=== PATIENT | female | born 1995 | race Caucasian/White ===

== ENCOUNTER 2020-10-18 09:53 | Emergency (ER) | payer SELFPAY ==
[2020-10-18 09:54] VITALS: BP 105/69; PULSE 64; RESP 16; TEMP 36.7; O2SAT 99; BMI 34.6
--- NOTE | 2020-10-18 10:02 | ED.VIS.GEN ---
History of Present Illness Chief Complaint: Abd Pain Informant: Patient Narrative: 25-year-old female with past medical history of PCOS presents with concern for lower abdominal cramping. Patient is at approximately 6 weeks. States it is midline and low in her pelvis. States that she has having frequent urination but denies any dysuria. Denies any vaginal bleeding. Denies any lightheadedness or dizziness. Denies any fever or chills. One episode nausea with vomiting this morning. Nonbilious and nonbloody. Past Medical History - Allergies and Home Meds Allergies/Adverse Reactions: Allergies No Known Allergies Allergy (Verified 10/18/20 10:07) Primary Care Physician: NOT,DEFINED [NON-STAFF] - Prior records reviewed: Yes Past Medical History: - - PCOS Surgical History: no surgical history Lives: With Family Smoking Status: Never smoker Alcohol: None Drugs: None Review of Systems General: Denies: Chills, Fever, Sweats Eyes: Denies: Visual changes - bilaterally, Diplopia ENT: Denies: Rhinorrhea, Sore throat Cardiovascular: Denies: Chest pain, Palpitations Respiratory: Denies: Dyspnea, Cough, Dyspnea on exertion Gastrointestinal: Reports: Abdominal pain, Nausea, Vomiting. Denies: Diarrhea, Melena, Hematochezia Genitourinary: Denies: Dysuria, Hematuria, Frequency Musculoskeletal: Denies: Back pain, Extremity Pain Skin: Denies: Rash, Wounds Neurological: Denies: Headache, Weakness, Numbness Physical Exam Vital Signs/Narrative: Vital Signs Temp Pulse Resp BP Pulse Ox 10/18/20 09:54 98.1 F 64 16 105/69 99 Inital Vital Signs reviewed: Yes General: Well nourished, Well developed, No Acute Distress Head: Normocephalic, Atraumatic Eyes: Perrl, EOMI ENT: Moist mucous membranes, No rhinorrhea Neck: Supple, Nontender Cardiovascular: Regular rate, Regular rhythm, No murmurs Respiratory: No distress, CTA bilaterally, Chest nontender Abdomen: Soft, Nondistended, Normal bowel sounds, - - Suprapubic tenderness. Back: Nontender, Normal Inspection Extremities: Nontender, No edema Skin: Normal color, No rash Neurological: Alert, Oriented x3, Cranial nerves II-XII grossly intact, Normal Strength, Normal Sensation Psychological: Normal affect, Normal Mood Diagnostic/Tx/Re-eval Clinical Impression(s) from Imaging Studies Obstetrics Ultrasound 10/18/20 11:59 IMPRESSION: Single live intrauterine gestation with a mean gestational age of 6 weeks and 2 days. Electronically Signed: Franki Alfaro, at 13:18 EST , Service support , Laboratory Data 10/18/20 10/18/20 10:04 10:27 HCG, Quant [id number] H Urine Color Straw Urine Clarity Sl. Cloudy Urine pH 7.0 Ur Specific [place] 1.010 Urine Protein Negative Urine Glucose (UA) Normal Urine Ketones Negative Urine Occult Blood Negative Urine Nitrite Negative Urine Bilirubin Negative Urine Urobilinogen Normal Ur Leukocyte Esterase Negative Urine RBC 0 SEEN Urine WBC 0 SEEN Ur Squamous Epith Cells 0-5 SEEN Urine Bacteria 0 SEEN Urine Mucus 0 SEEN - Medical Decision Making Appears well nontoxic. Vital signs within normal limits. No vaginal bleeding. Urine clear. Quantitative hCG at appropriate level. Spoke with Dr. Perea MOTOR COACH CHAUFFEUR who suggested transvaginal ultrasound. Ultrasound confirms IUP without evidence of adnexal mass. Patient advised to follow-up at her scheduled appointment and return for any further concern. Patient agreeable and discharged home in stable condition. Impression: 1. Abdominal pain 2. First trimester ED Disposition - Plan for ED Patient: Disposition: Home or Assisted Living Instructions: Care for a Healthy Baby Referrals: Tom Portillo MD [STAFF PHYSICIAN] - Keep Carie appointment
[2020-10-18 10:10] LABS: Bacteria 0 SEEN /hpf (None Seen); Mucous, Urine 0 SEEN /hpf (<or=2+); Red Blood Cells-Urine 0 SEEN /hpf (0-5); White Blood Cells 0 SEEN /hpf (0-5)
[2020-10-18 10:26] LABS: Color, Urine Straw (Yellow); Glucose, Dipstick Normal (Normal); Ketone-Dipstick Negative (Negative); Leukocyte Esterase-Dipstick Negative /ul (Negative); Nitrite-Dipstick Negative (Negative); Occult Blood-Urine Negative /ul (Negative); Protein-Dipstick Negative (Negative); Urine Bilirubin Dipstick Negative (Negative); Urine Clarity Sl. Cloudy (Clear); Urine Urobilinogen Normal (Normal)
[2020-10-18 10:36] LABS: Squamous Epithelial Cells - UA 0-5 SEEN /hpf (5-10)
[2020-10-18 11:20] LABS: hCG Titer Quant., Serum 16915 mIU/mL (1-3)
--- NOTE | 2020-10-18 11:59 | US_ITS ---
STUDY: FIRST TRIMESTER OBSTETRICAL ULTRASOUND REASON FOR EXAM: Female, 25 years old cramping without bleeding LMP: 09/05/2020. TECHNIQUE: Transvaginal TECHNICAL QUALITY: Adequate. PRIOR ULTRASOUND: None. FINDINGS: There is visualization of a single gestational sac in a normal intrauterine position. The mean sac diameter (MSD) measures 1.5 cm, indicating an estimated gestational age (EGA) of 6 weeks, 2 days. The gestational sac shape is within normal limits. There is a visualized yolk sac. The yolk sac measures 3 mm. The placenta is non-visualized. There is visualization of a live embryo. The crown-rump length (CRL) measures 4 mm, indicating an estimated gestational age (EGA) of 6 weeks, 2 days. There is demonstrated cardiac activity with a heart rate of 90 bpm. The estimated gestation age (EGA) by LMP is 6 weeks, 1 days. The estimated date of delivery (JUDIE) by LMP is 06/12/2021. The estimated gestation age (EGA) by US is 6 weeks, 2 days. The estimated date of delivery (JUDIE) by US is 06/11/2021. The uterus measures 10.1 cm x 6.2 cm x 6.2 cm. There is no demonstrated uterine fibroid. The cervix is closed. The right ovary measures 3.1 cm x 2.1 cm x 1.9 cm. There is no right ovarian cyst. There is no visualized right adnexal mass or complex lesion. The left ovary measures 4.7 cm x 2.6 cm x 2.7 cm. There is no left ovarian cyst. There is no visualized left adnexal mass or complex lesion. There is minimal fluid in the cul de sac. US/Transvaginal w/Preg US IMPRESSION: Single live intrauterine gestation with a mean gestational age of 6 weeks and 2 days. Electronically Signed: Franki Alfaro, at 13:18 EST , Service support ,
[2020-10-18 12:00] VITALS: RESP 16
== END 2020-10-18 13:36 | disposition home or self-care (01) ==
PROVIDERS: Emergency Provider Emergency Medicine
DX: O26.891 Other specified pregnancy related conditions, first trimester (principal); R10.9 Unspecified abdominal pain; O99.281 Endocrine, nutritional and metabolic diseases complicating pregnancy, first trimester; E28.2 Polycystic ovarian syndrome; Z3A.01 Less than 8 weeks gestation of pregnancy
CPT/HCPCS: 36415; 76817; 81001; 84702; 99282

== ENCOUNTER → 2020-11-16 09:55 | Outpatient (CLI) | payer OTHER, SELFPAY ==
[2020-10-18 09:54] VITALS: BMI 34.6
[2020-11-16 11:03] LABS: Absolute Lymphocyte Count 1.22 X10^3/uL (0.83-4.51); Absolute Neutrophil Count 7.5 X10^3/uL (2.0-7.7); Basophil# 0.04 X10^3/uL; Basophil% 0.4 % (0-1); Eosinophil# 0.08 X10^3/uL; Eosinophils% 0.9 % (0-5); Hematocrit 36.3 % (37-47); Hemoglobin 12.3 g/dL (12.0-15.0); Lymphocyte # 1.22 X10^3/ul (4.0); Mean Corp Hgb Conc 33.9 g/dL (32-36); Mean Corpuscular Hgb 30.8 pg (27.0-32.0); Mean Platelet Vol. 10.5 fl (6.2-12.0); Monocyte# 0.45 X10^3/uL; Monocyte% 4.8 % (0-10); NRBC Flagged by Analyzer 0 % (0-5); Neutrophil # 7.49 X10^3/uL (2.7-7.7); Platelet Count 271 K/mm3 (150-450); RBC Distribution Width CV 12.6 % (11.6-14.6); RBC Distribution Width SD 41.7 fl (35.1-43.9); Red Blood Count 3.99 M/mm3 (4.2-5.4); White Blood Count 9.4 K/mm3 (4.4-11.0)
[2020-11-16 11:53] LABS: HIV - WCH Non-Reactive (Nonreactive); Hepatitis B Surface Antigen Non-Reactive (Nonreactive); Hepatitis C Antibody Non-Reactive (Nonreactive); Rubella IgG Reactive (Nonreactive)
[2020-11-20 03:07] LABS: Chlamydia By Nucleic Acid AMP Negative (Negative)
[2020-11-20 08:41] LABS: Gonococcus By Nucleic Acid AMP Negative (Negative)
[2020-11-22 01:42] LABS: Prenatal RPR NONREACTIVE (NONREACTIVE)
== END ==
PROVIDERS: Visit Provider Obstetrics & Gynecology
DX: Z34.81 Encounter for supervision of other normal pregnancy, first trimester (principal)
CPT/HCPCS: 36415; 85025; 86703; 86762; 86803; 87086; 87088; 87340; 87491; 87591

== ENCOUNTER 2020-11-19 14:57 | Emergency (ER) | payer OTHER, SELFPAY ==
[2020-11-19 14:59] VITALS: BP 139/78; PULSE 98; RESP 18; TEMP 36.9; O2SAT 99; BMI 36.6
--- NOTE | 2020-11-19 15:09 | ED.DCSUM_ITS ---
History of Present Illness Chief Complaint: General Illness Informant: Patient Narrative: 25-year-old female G1, P0 at 11 weeks presents with fever. Patient states that she has had intermittent fever over the past 2 days. States that she is working at the [employer] today when she felt feverish they checked her temperature which was above 100 and sent her home. States that she has had muscle aches in her lower extremities. States she is felt very weak. States she began having pain in her right back last night. Describes it as aching. States that she does have urinary frequency without dysuria. Denies any vaginal bleeding or discharge. Denies any nausea, vomiting, abdominal pain. Denies any cough. Denies any sick contacts. Past Medical History - Allergies and Home Meds Allergies/Adverse Reactions: Allergies No Known Allergies Allergy (Verified 10/18/20 10:07) Primary Care Physician: Care Physician,No Primary [Primary Care Provider] - Prior records reviewed: Yes Past Medical History: None Surgical History: no surgical history Lives: Spouse/ Significant Other Smoking Status: Former smoker Alcohol: None Drugs: None Review of Systems General: Reports: Fever, Malaise. Denies: Chills, Sweats Eyes: Denies: Visual changes - bilaterally, Diplopia ENT: Denies: Rhinorrhea, Sore throat Cardiovascular: Denies: Chest pain, Palpitations Respiratory: Denies: Dyspnea, Cough, Dyspnea on exertion Gastrointestinal: Denies: Abdominal pain, Nausea, Vomiting, Diarrhea, Melena, Hematochezia Genitourinary: Denies: Dysuria, Hematuria, Frequency Musculoskeletal: Reports: Myalgias. Denies: Back pain, Extremity Pain Skin: Denies: Rash, Wounds Neurological: Denies: Headache, Weakness, Numbness Physical Exam Vital Signs/Narrative: Vital Signs Temp Pulse Resp BP Pulse Ox 11/19/20 14:59 98.5 F 98 18 139/78 H 99 Inital Vital Signs reviewed: Yes General: Well nourished, Well developed, No Acute Distress Head: Normocephalic, Atraumatic Eyes: Perrl, EOMI ENT: Moist mucous membranes, No rhinorrhea Neck: Supple, Nontender Cardiovascular: Regular rate, Regular rhythm, No murmurs Respiratory: No distress, CTA bilaterally, Chest nontender Abdomen: Soft, Nontender, Nondistended, Normal bowel sounds Back: Nontender, Normal Inspection Extremities: Nontender, No edema Skin: Normal color, No rash Neurological: Alert, Oriented x3, Cranial nerves II-XII grossly intact, Normal Strength, Normal Sensation Psychological: Normal affect, Normal Mood Diagnostic/Tx/Re-eval Laboratory Data 11/19/20 11/19/20 15:14 15:20 Urine Color Yellow Urine Clarity Sl. Cloudy Urine pH 6.0 Ur Specific [place] 1.025 Urine Protein Negative Urine Glucose (UA) Normal Urine Ketones 5 H Urine Occult Blood Negative Urine Nitrite Negative Urine Bilirubin Negative Urine Urobilinogen Normal Ur Leukocyte Esterase 500 H Urine RBC 0 SEEN Urine WBC 0-5 SEEN Ur Squamous Epith Cells 10-25 SEEN Urine Bacteria 1+ Urine Mucus 0 SEEN POC Glucose 99 - Medical Decision Making Appears well nontoxic. Afebrile. No tachycardia. Abdomen soft. No vaginal bleeding or discharge. Urine shows no significant evidence of infection. Will be sent for culture. Glucose normal. Covid negative. Spoke with patient's SOLAR SALES REPRESENTATIVE AND ASSESSOR Dr. Perea who is agreeable with following up in the office. Patient advised to return for new or worsening symptoms. Patient agreeable and discharged home in stable condition. Impression: 1. Intermittent fevers 2. First trimester ED Disposition - Plan for ED Patient: Disposition: Home or Assisted Living Instructions: Care for a Healthy Baby, Nutrition During Referrals: Anderson Perea MD [STAFF PHYSICIAN] - 5-7 Days
[2020-11-19 15:30] LABS: Mucous, Urine 0 SEEN /hpf (<or=2+)
[2020-11-19 15:31] LABS: Bedside Glucose 99 mg/dL (70-110)
[2020-11-19 15:34] LABS: Color, Urine Yellow (Yellow); Glucose, Dipstick Normal (Normal); Ketone-Dipstick 5 mg/dl (Negative); Leukocyte Esterase-Dipstick 500 /ul (Negative); Nitrite-Dipstick Negative (Negative); Occult Blood-Urine Negative /ul (Negative); Protein-Dipstick Negative (Negative); Specific Gravity, Urine 1.025 (1.002-1.030); Urine Bilirubin Dipstick Negative (Negative); Urine Clarity Sl. Cloudy (Clear); Urine Urobilinogen Normal (Normal)
[2020-11-19 15:44] LABS: Red Blood Cells-Urine 0 SEEN /hpf (0-5); Squamous Epithelial Cells - UA 10-25 SEEN /hpf (5-10)
[2020-11-19 15:45] LABS: Bacteria 1+ /hpf (None Seen); White Blood Cells 0-5 SEEN /hpf (0-5)
[2020-11-19 17:07] VITALS: BP 132/80; PULSE 64; PULSE 74; RESP 16; O2SAT 97; O2SAT 98
== END 2020-11-19 17:08 | disposition home or self-care (01) ==
PROVIDERS: Emergency Provider Emergency Medicine
DX: O26.891 Other specified pregnancy related conditions, first trimester (principal); R50.9 Fever, unspecified; M79.10 Myalgia, unspecified site; Z3A.11 11 weeks gestation of pregnancy; Z87.891 Personal history of nicotine dependence
CPT/HCPCS: 81001; 82962; 87426; 99282

== ENCOUNTER 2020-12-08 17:32 | Emergency (ER) | payer OTHER, SELFPAY ==
[2020-12-08 17:32] VITALS: BP 155/88; PULSE 98; RESP 16; TEMP 36.7; O2SAT 98; BMI 36.6
[2020-12-08 17:35] VITALS: BP 155/88; PULSE 98; RESP 16; TEMP 36.7; O2SAT 98
--- NOTE | 2020-12-08 17:53 | ED.DCSUM_ITS ---
- ER Visit Summary Date of Service: 12/08/20 Chief Complaint: Vaginal bleeding History of Present Illness: The patient is a 25 F who by dates is around 13 weeks . She single live IUP on October 18, 2020 by ultrasound. Blood type is O+ from prior labs. States last week she had some pelvic cramping and vaginal bleeding which is since stopped. She is having no further bleeding. Said today she had diarrhea and a fever of 101. Denies vomiting. Denies any dysuria. Currently denies any abdominal pain. This is her first G1, P0 Ab0. Physical Examination: Young female no acute distress vital signs stable afebrile. HEENT exam unremarkable. Moist with members. Neck nontender no lymphadenopathy. Lungs clear to auscultation bilaterally. Heart regular rhythm no murmur rate about 90. Chest were nontender. Abdomen soft nontender normal bowel sounds no peritoneal signs. Patient moving all 4 extremities. No edema. Back nontender. Neurologically she is awake alert with no focal motor deficits. Test Results: CBC shows count 8. Hemoglobin 11.7 which is along her baseline. BMP shows mild hypokalemia potassium 3.3. Normal creatinine and gap. UA negative. Quantitative hCG equals 19,568. Previously it was 16,915. ABO Rh from prior labs is O+. heart tones per nursing positive at 154 bpm. Emergency Department Course and Treatment: Vaginal bleeding and cramping possible miscarriage. Currently not bleeding. Repeat exam patient is doing well at 1935 PM. Will be discharged home with outpatient follow-up with her [employer]. She and I went over all of her test results. Treatment Plan: Patient follow-up for possible threatened miscarriage. Disposition: Discharge Impression: Vaginal bleeding at 13 weeks Threatened miscarriage This note was generated with soup.me dictation software. It may contain incorrect words, spelling, and punctuation that were not noted in review of the chart prior to signing ED Disposition - Plan for ED Patient: Disposition: Home or Assisted Living Instructions: ED Possible Miscarriage ... Referrals: Anderson Perea MD [STAFF PHYSICIAN] - 3-5 Days Additional Instructions: Tylenol for any pain. Follow-up with your [employer] doctor this week. Any time you have vaginal bleeding and you are there is a risk of a miscarriage but at this time there is no signs of a miscarriage.
[2020-12-08 18:12] LABS: Mucous, Urine 0 SEEN /hpf (<or=2+); Red Blood Cells-Urine 0 SEEN /hpf (0-5)
[2020-12-08] MEDS: 0.9% Normal Saline 1,000 ML 1000 ML IV (18:13)
[2020-12-08 18:22] LABS: Absolute Lymphocyte Count 1.46 X10^3/uL (0.83-4.51); Absolute Neutrophil Count 6.2 X10^3/uL (2.0-7.7); Basophil# 0.02 X10^3/uL; Basophil% 0.2 % (0-1); Eosinophil# 0.06 X10^3/uL; Eosinophils% 0.7 % (0-5); Hematocrit 34.3 % (37-47); Hemoglobin 11.7 g/dL (12.0-15.0); Lymphocyte # 1.46 X10^3/ul (4.0); Lymphocyte % 17.8 % (19-41); Mean Corp Hgb Conc 34.1 g/dL (32-36); Mean Corpuscular Hgb 30.9 pg (27.0-32.0); Mean Corpuscular Volume 90.5 fL (81-99); Mean Platelet Vol. 10.3 fl (6.2-12.0); Monocyte# 0.45 X10^3/uL; Monocyte% 5.5 % (0-10); NRBC Flagged by Analyzer 0 % (0-5); Neutrophil # 6.17 X10^3/uL (2.7-7.7); Neutrophil % 75.3 % (47-70); Platelet Count 252 K/mm3 (150-450); RBC Distribution Width CV 12.2 % (11.6-14.6); RBC Distribution Width SD 40.4 fl (35.1-43.9); Red Blood Count 3.79 M/mm3 (4.2-5.4); White Blood Count 8.2 K/mm3 (4.4-11.0)
[2020-12-08 18:38] LABS: Color, Urine Yellow (Yellow); Glucose, Dipstick Normal (Normal); Ketone-Dipstick 5 mg/dl (Negative); Leukocyte Esterase-Dipstick 25 /ul (Negative); Nitrite-Dipstick Negative (Negative); Occult Blood-Urine 10 /ul (Negative); Protein-Dipstick Negative (Negative); Specific Gravity, Urine 1.025 (1.002-1.030); Urine Bilirubin Dipstick Negative (Negative); Urine Clarity Sl. Cloudy (Clear); Urine Urobilinogen Normal (Normal)
[2020-12-08 18:43] LABS: Squamous Epithelial Cells - UA 10-25 SEEN /hpf (5-10)
[2020-12-08 18:44] LABS: Bacteria 3+ /hpf (None Seen); White Blood Cells 0-5 SEEN /hpf (0-5)
[2020-12-08 18:50] LABS: Anion Gap 4 (5-15); BUN 15 mg/dL (7-18); BUN/Creat Ratio 26.5 RATIO (10-20); Calcium,Total 8.4 mg/dL (8.5-10.1); Chloride 106 mmol/L (98-107); Creatinine, Serum 0.57 mg/dL (0.55-1.02); EST Glomerular Filtration Rate 140 mL/min (>60); Est Glom Filt Rate - Afr Amer 169 mL/min (>60); Glucose 104 mg/dL (74-106); Potassium 3.3 mmol/L (3.5-5.1); Sodium Level 137 mmol/L (136-145)
--- NOTE | 2020-12-08 19:38 | ED.DEP ---
ED Disposition - Plan for ED Patient: Disposition: Home or Assisted Living Instructions: ED Possible Miscarriage ... Referrals: Anderson Perea MD [STAFF PHYSICIAN] - 3-5 Days Additional Instructions: Tylenol for any pain. Follow-up with your DISTRIBUTION WAREHOUSE MANAGER doctor this week. Any time you have vaginal bleeding and you are there is a risk of a miscarriage but at this time there is no signs of a miscarriage.
[2020-12-08 19:48] VITALS: BP 117/72; PULSE 69; RESP 16; RESP 18; TEMP 36.6; O2SAT 99
[2020-12-08 20:07] LABS: hCG Titer Quant., Serum 19568 mIU/mL (1-3)
== END 2020-12-08 19:49 | disposition home or self-care (01) ==
PROVIDERS: Emergency Provider Emergency Medicine
DX: O20.0 Threatened abortion (principal); Z3A.13 13 weeks gestation of pregnancy; F32.9 Major depressive disorder, single episode, unspecified; Z79.899 Other long term (current) drug therapy
CPT/HCPCS: 80048; 81001; 84702; 85025; 96360; 96361; 99283; J7030; A4216

== ENCOUNTER → 2021-02-27 09:11 | Outpatient (CLI) | payer OTHER, MEDICAID, SELFPAY ==
[2021-02-27 10:25] LABS: Hematocrit 33.7 % (37-47); Hemoglobin 10.9 g/dL (12.0-15.0); Mean Corp Hgb Conc 32.3 g/dL (32-36); Mean Corpuscular Hgb 29.9 pg (27.0-32.0); Mean Corpuscular Volume 92.3 fL (81-99); Mean Platelet Vol. 10.6 fl (6.2-12.0); Platelet Count 303 K/mm3 (150-450); RBC Distribution Width CV 12.7 % (11.6-14.6); RBC Distribution Width SD 42.4 fl (35.1-43.9); Red Blood Count 3.65 M/mm3 (4.2-5.4); White Blood Count 10.5 K/mm3 (4.4-11.0)
[2021-02-27 10:29] LABS: Glucose Challenge Gest 1H 50g 151 mg/dL (70-140)
== END ==
PROVIDERS: Visit Provider Obstetrics & Gynecology
DX: Z34.82 Encounter for supervision of other normal pregnancy, second trimester (principal)
CPT/HCPCS: 36415; 82950; 85027

== ENCOUNTER → 2021-03-13 06:48 | Outpatient (CLI) | payer MEDICAID, SELFPAY ==
[2021-03-13 07:39] LABS: Glucose GTT-Gestation. Fasting 89 mg/dL (<105)
[2021-03-13 08:39] LABS: Glucose GTT-Gestational 1 Hr 190 mg/dL (<190)
[2021-03-13 09:44] LABS: Glucose GTT-Gestational 2 Hr 122 mg/dL (<165)
[2021-03-13 10:38] LABS: Glucose GTT-Gestational 3 Hr 147 L (<145)
== END ==
PROVIDERS: Referring Provider Obstetrics & Gynecology; Visit Provider Obstetrics & Gynecology
DX: O24.912 Unspecified diabetes mellitus in pregnancy, second trimester (principal); Z3A.00 Weeks of gestation of pregnancy not specified
CPT/HCPCS: 36415; 82951; 82952

== ENCOUNTER 2021-04-05 00:15 | Outpatient (CLI) | payer MEDICAID, SELFPAY ==
[2021-04-05 00:36] VITALS: BP 110/62; PULSE 73
[2021-04-05 00:37] VITALS: PULSE 77; O2SAT 99
[2021-04-05 00:44] VITALS: BMI 41.1
[2021-04-05 01:11] LABS: ROM Internal Control Test YES-OK TO RESULT pt. (Internal QC)
[2021-04-05 01:12] LABS: ROM Patient Test Negative (Negative)
[2021-04-05 01:18] LABS: Color, Urine Yellow (Yellow); Glucose, Dipstick Normal (Normal); Ketone-Dipstick 15 mg/dl (Negative); Leukocyte Esterase-Dipstick 100 /ul (Negative); Nitrite-Dipstick Negative (Negative); Occult Blood-Urine 25 /ul (Negative); Protein-Dipstick 15 mg/dl (Negative); Urine Bilirubin Dipstick Negative (Negative); Urine Clarity Clear (Clear); Urine Urobilinogen Normal (Normal)
--- NOTE | 2021-04-05 08:20 | OB.TRI.NOTE ---
HPI - General HPI Narrative DARRIAN FIGUEROA, is a 26 F G1, P0 at 30 weeks and 2 days arrives with leakage of fluid. PFSH PFSH Home Medications Formula Tablet 1 tab PO DAILY 11/19/20 [History Last Taken 04/04/21] Allergy/AdvReac Type Severity Reaction Status Date / Time latex Allergy Swelling Verified 04/05/21 00:50 shellfish derived Allergy Anaphylaxis Verified 04/05/21 00:50 Social History Smoking Status: Never smoker NST FHR Rate Baby A Baseline: 140 Variability:: Moderate Accelerations:: 15 x 15 Decelerations:: None NST Reactive:: Yes Uterine Activity:: Quiet Assessment & Plan (1) : PLAN: 26-year-old G1, P0 at 30 weeks and 2 days with leakage of fluid ruled out rupture. Okay to discharge home and follow-up at scheduled appointments.
[2021-04-05 12:38] VITALS: PULSE 88; O2SAT 100
== END 2021-04-05 02:20 | disposition home or self-care (01) ==
LOC: WPOUT 00:23 → WP 00:24
PROVIDERS: Referring Provider Obstetrics & Gynecology; Visit Provider Obstetrics & Gynecology
DX: Z03.71 Encounter for suspected problem with amniotic cavity and membrane ruled out (principal)
CPT/HCPCS: 59050; 81002; 84112; 87086; 99218; G0378

== ENCOUNTER 2022-09-05 10:11 | Emergency (ER) | payer MEDICAID, SELFPAY ==
[2022-09-05 10:12] VITALS: BP 114/75; PULSE 77; RESP 16; TEMP 36.4; O2SAT 97; BMI 33.8
--- NOTE | 2022-09-05 11:30 | US_ITS ---
PROCEDURE: ULTRASOUND OF THE FEMALE PELVIS - COMPLETE REASON FOR EXAM: Female, 27 years old. PT C/O PELVIC PAIN, LEFT WORSE THAN RIGHT. HX OF PCOS, AND IUD. URINE PREG TODAY WAS NEGATIVE TECHNIQUE: Transabdominal and Transvaginal TECHNICAL QUALITY: Adequate. COMPARISON: None. FINDINGS: The uterus is retroflexed and is tilted to the left side of the pelvis. The uterus measures 8.6 x 6.5 x 5.6 cm. There is no demonstrated myometrial mass. An intrauterine device is present in the fundal portion of the endometrial cavity. The endometrium measures 5 mm in thickness, and is hyperechoic. There is no demonstrated endometrial mass. Normal uterine cervix. The right ovary is visualized. The right ovary measures 4.6 x 1.9 x 1.9 cm. There is no right ovarian cyst or ovarian mass. There is no visualized right adnexal mass or complex lesion. The left ovary is visualized. The left ovary measures 4.0 x 2.6 x 2.7 cm. There is no left ovarian cyst or ovarian mass. There is no visualized left adnexal mass or complex lesion. Normal color vascular flow and Doppler signal is demonstrated in both ovaries. There is minimal fluid in the cul-de-sac. US/Transvaginal Non- IMPRESSION: 1. No acute or significant abnormality on this pelvic ultrasound exam. Electronically Signed: Juan Chapa MD at 13:46 EST ,
--- NOTE | 2022-09-05 11:31 | EDS_ITS ---
HPI <SANTINO Cortes - Last Filed: 09/05/22 13:58> History of Present Illness Chief Complaint: Abd Pain Narrative Narrative: 27-year-old female with history of PCOS, dysmenorrhea, currently uses the Mirena presents to the emergency department with lower pelvic pain. Patient states that she has pain around both ovaries. Patient does note that she has a growth on her left ovary. The pain is worse on the left than the right. Patient denies any fever or chills. Patient denies any vaginal bleeding at this time. Patient is unable call the last time she had a menstrual cycle. Patient does have unprotected sex if she denies any vaginal discharge. Patient denies any difficulty urinating. Due to the pain she is here for evaluation. PFSH <SANTINO Cortes - Last Filed: 09/05/22 13:58> [facility] Medical History (Updated 09/05/22 @ 13:56 by SANTINO Cortes) History of PCOS Polycystic bilateral ovaries Home Medications ibuprofen 600 mg tablet 600 mg PO Q6H PRN PRN pain #20 tabs 09/05/22 [Rx Last Taken Unknown] levonorgestrel 20 mcg/24 hours (8 yrs) 52 mg intrauterine device (Mirena) mcg intrauterine 09/05/22 [History Last Taken Unknown] Allergy/AdvReac Type Severity Reaction Status Date / Time latex Allergy Swelling Verified 09/05/22 10:15 shellfish derived Allergy Anaphylaxis Verified 09/05/22 10:15 Social History Smoking Status: Never smoker ROS <SANTINO Cortes - Last Filed: 09/05/22 13:58> ROS ED ROS Narrative Constitutional: Negative for fever, chills, weight loss, weakness Eyes: Negative for vision loss, vision change, double vision ENT: Negative for any sore throat, ear pain, congestion Cardiovascular: Negative for any chest pain, tightness, palpitations Respiratory: Negative for any cough, sputum production, hemoptysis, dyspnea, dyspnea on exertion, orthopnea Gastrointestinal: Negative for any vomiting, diarrhea, constipation, blood in stool, blood in vomit. Positive for lower abdominal pain, nausea : Negative for any urinary frequency, dysuria, retention, blood in urine Muscle skeletal: Negative for any muscle joint pain, stiffness, myalgias, arthralgias, neck pain, back pain Neurological: Negative for any headache, syncope, numbness or tingling, dizziness Skin: Negative for any rashes, lumps, itching, abrasions, lacerations Psychiatric: Negative for any depression, anxiety, stress, suicidal ideation, homicidal ideation Hematologic: Negative for any easy bruising, excessive bruising, easy bleeding Allergies: Negative for any eczema, hives, rash EXAM <SANTINO Cortes - Last Filed: 09/05/22 13:58> Physical Exam Narrative Exam Narrative: Vital signs reviewed. HEET: Head normocephalic atraumatic, TMs clear bilaterally. Posterior pharynx is clear, moist mucous membranes. Nares clear bilaterally. Neck: Supple with no lymphadenopathy or tenderness. No signs of meningismus, negative jolt sign. Cardiac: Regular rate and rhythm no murmurs gallops or rubs, equal peripheral pulses bilaterally. Respiratory: Lungs clear to auscultation bilaterally. No chest tenderness. Abdomen: Soft,nondistended. No abdominal bruit or pulsatile masses. No hepatosplenomegaly. Patient has tenderness more to the lower abdomen, pain is more pelvic in nature. Patient has no Harris sign, no pain in McBurney's point. No peritoneal signs. Active bowel sounds throughout all quadrants. Extremities: No peripheral edema, no signs of gross trauma or deformity. Active full range of motion of all extremities. Neuro: Cranial nerves II through XII intact, no focal neurological deficits. Skin: Clean dry and intact with no rash, purpura, petechiae, vesicles or pustules. Backs/flank: No CVA tenderness, no midline spinal tenderness, no deformity. Psych: Normal mood and affect. No SI, HI or acute psychosis. Const Vital Signs: 09/05/22 10:12 09/05/22 12:28 09/05/22 13:25 Temperature 97.6 F L Temperature Source Temporal Pulse Rate 77 75 59 L Respiratory Rate 16 16 16 Blood Pressure 114/75 114/64 84/44 L Blood Pressure Mean 88 80 57 Pulse Ox 97 99 100 Oxygen Delivery Method Room Air Room Air Positive well nourished and well developed General Appearance ED: well developed <Dr. Lev Humphrey MD - Last Filed: 09/05/22 14:01> Physical Exam Const Vital Signs: 09/05/22 10:12 09/05/22 12:28 09/05/22 13:25 Temperature 97.6 F L Temperature Source Temporal Pulse Rate 77 75 59 L Respiratory Rate 16 16 16 Blood Pressure 114/75 114/64 84/44 L Blood Pressure Mean 88 80 57 Pulse Ox 97 99 100 Oxygen Delivery Method Room Air Room Air [facility] <SANTINO Cortes - Last Filed: 09/05/22 13:58> [facility] Lab Data Attestation: I reviewed the patient's lab results. Labs: Laboratory Results - last 24 hr 09/05/22 09/05/22 09/05/22 10:35 10:35 12:00 WBC 7.7 RBC 4.62 Hgb 14.1 Hct 41.5 MCV 89.8 MCH 30.5 MCHC 34.0 RDW Std Deviation 42.1 RDW Coeff of Caitlyn 12.7 Plt Count 311 MPV 10.5 Immature Gran % (Auto) 0.500 Neut % (Auto) 69.6 Lymph % (Auto) 22.4 Vance % (Auto) 5.6 Eos % (Auto) 1.3 Baso % (Auto) 0.6 Absolute Neuts (auto) 5.4 Absolute Lymphs (auto) 1.73 Nucleated RBC % 0 Sodium 138 Potassium 3.7 Chloride 105 Carbon Dioxide 28.0 Anion Gap 5 BUN 14 Creatinine 0.65 Estim Creat Clear Calc 104.64 Est GFR (MDRD) Af Amer 143 Est GFR (MDRD) Non-Af 118 BUN/Creatinine Ratio 21.6 H Glucose 73 L Calcium 9.3 Urine Color Yellow Urine Clarity Sl. Cloudy Urine pH 7.0 Ur Specific [place] 1.015 Urine Protein 15 H Urine Glucose (UA) Normal Urine Ketones Negative Urine Occult Blood Negative Urine Nitrite Negative Urine Bilirubin Negative Urine Urobilinogen Normal Ur Leukocyte Esterase 25 H Urine RBC 0 SEEN Urine WBC 5-10 SEEN Ur Squamous Epith Cells 5-10 SEEN Urine Bacteria 0 SEEN Urine Mucus 2+ Urine Test Negative Radiography Diagnostic Testing: Clinical Impression(s) from Imaging Studies Transvaginal US 09/05/22 11:30 IMPRESSION: 1. No acute or significant abnormality on this pelvic ultrasound exam. Electronically Signed: Juan Chapa MD at 13:46 EST , Treatment and Re-Evaluation Narrative: Patient appears well, patient appears nontoxic, vital signs are stable. Patient presents to the emergency department with complaints of lower pelvic pain history of polycystic ovarian syndrome. Patient did receive a full abdominal work-up, patient CBC was unremarkable, chemistries were unremarkable, urinalysis was negative for any infection, patient's urine test was negative. Patient's ultrasound of the pelvis showed no acute or significant abnormality of the pelvic. At this time, patient's negative physical exam, negative laboratory studies, negative pelvic ultrasound, the patient be able to be discharged home. She be given ibuprofen 600 mg for her pain. Instructed to follow-up with her CAD DRAFTER which she is established. At this time, patient is stable for discharge given return precautions. <Dr. Lev Humphrey MD - Last Filed: 09/05/22 14:01> [facility] Narrative Medical decision making narrative: I have personally performed a face to face assessment of the patient and have reviewed the KYLE Note. I performed a substantive portion of the visit including all aspects of the following. My silva findings include: History is remarkable for left lower quadrant Howard pain. She has history of polycystic ovarian disease and apparent pelvic mass. She denies fever, chills night sweats. She denies history of STI. She does report dyspareunia and abnormal vaginal bleeding with intercourse. She denies urologic symptoms. She denies flank pain. She denies nausea, vomiting diarrhea. Exam is unremarkable. Her abdominal exam is benign. There is no ankle lymphadenopathy. There is no inguinal hernia noted. There is no tenderness. Bowel sounds are slightly diminished. There is no CVA tenderness noted. There is no evidence of trauma. Medical Decision Making suspect patient has abdominal pain of unknown etiology or due to affective disorder. Since she is complained of severe pain and ultrasound was ordered of the pelvis by the midlevel. Work-up was undertaken is unremarkable. This included a negative test. Since her work-up is negative she will be discharged home Other additions or changes: No additions or corrections to the midlevel's note Lab Data Labs: Laboratory Results - last 24 hr 09/05/22 09/05/22 09/05/22 10:35 10:35 12:00 WBC 7.7 RBC 4.62 Hgb 14.1 Hct 41.5 MCV 89.8 MCH 30.5 MCHC 34.0 RDW Std Deviation 42.1 RDW Coeff of Caitlyn 12.7 Plt Count 311 MPV 10.5 Immature Gran % (Auto) 0.500 Neut % (Auto) 69.6 Lymph % (Auto) 22.4 Vance % (Auto) 5.6 Eos % (Auto) 1.3 Baso % (Auto) 0.6 Absolute Neuts (auto) 5.4 Absolute Lymphs (auto) 1.73 Nucleated RBC % 0 Sodium 138 Potassium 3.7 Chloride 105 Carbon Dioxide 28.0 Anion Gap 5 BUN 14 Creatinine 0.65 Estim Creat Clear Calc 104.64 Est GFR (MDRD) Af Amer 143 Est GFR (MDRD) Non-Af 118 BUN/Creatinine Ratio 21.6 H Glucose 73 L Calcium 9.3 Urine Color Yellow Urine Clarity Sl. Cloudy Urine pH 7.0 Ur Specific [place] 1.015 Urine Protein 15 H Urine Glucose (UA) Normal Urine Ketones Negative Urine Occult Blood Negative Urine Nitrite Negative Urine Bilirubin Negative Urine Urobilinogen Normal Ur Leukocyte Esterase 25 H Urine RBC 0 SEEN Urine WBC 5-10 SEEN Ur Squamous Epith Cells 5-10 SEEN Urine Bacteria 0 SEEN Urine Mucus 2+ Urine Test Negative Radiography Diagnostic Testing: Clinical Impression(s) from Imaging Studies Transvaginal US 09/05/22 11:30 IMPRESSION: 1. No acute or significant abnormality on this pelvic ultrasound exam. Electronically Signed: Juan Chapa MD at 13:46 EST Reading Location ID and State: [address] [place] [address] , Service support , Discharge Plan Triage Chief Complaint: Abd Pain ED Midlevel Provider: Flash Gonzáles ED Provider: Lev Humphrey Dx/Rx/DC Orders Clinical Impression: Pelvic pain, Abdominal pain Instructions: ED Abdominal Pain Unkn Cause Fem Prescriptions: New ibuprofen 600 mg tablet 600 mg PO Q6H PRN PRN (Reason: pain) Qty: 20 0RF No Action Mirena 20 mcg/24 hours (8 yrs) 52 mg Intrauterine Device INTRAUTERINE Primary Care Provider: SHERRIE MEDRANO APRN Referrals: SHERRIE MEDRANO APRN [Other] Activity Restrictions/Additional Instructions: Please follow-up with your CAD DRAFTER Disposition Disposition: Home, Self Care
[2022-09-05 11:38] LABS: Absolute Lymphocyte Count 1.73 X10^3/uL (0.83-4.51); Absolute Neutrophil Count 5.4 X10^3/uL (2.0-7.7); Basophil# 0.05 X10^3/uL; Basophil% 0.6 % (0-1); Eosinophils% 1.3 % (0-5); Hematocrit 41.5 % (37-47); Hemoglobin 14.1 g/dL (12.0-15.0); Lymphocyte # 1.73 X10^3/ul (0.83-4.51); Lymphocyte % 22.4 % (19-41); Mean Corpuscular Hgb 30.5 pg (27.0-32.0); Mean Corpuscular Volume 89.8 fL (81-99); Mean Platelet Vol. 10.5 fl (6.2-12.0); Monocyte# 0.43 X10^3/uL; Monocyte% 5.6 % (0-10); NRBC Flagged by Analyzer 0 % (0-5); Neutrophil # 5.37 X10^3/uL (2.7-7.7); Neutrophil % 69.6 % (47-70); Platelet Count 311 K/mm3 (150-450); RBC Distribution Width CV 12.7 % (11.6-14.6); RBC Distribution Width SD 42.1 fl (35.1-43.9); Red Blood Count 4.62 M/mm3 (4.2-5.4); White Blood Count 7.7 K/mm3 (4.4-11.0)
[2022-09-05 11:58] LABS: Anion Gap 5 (5-15); BUN 14 mg/dL (7-18); BUN/Creat Ratio 21.6 RATIO (10-20); Calcium,Total 9.3 mg/dL (8.5-10.1); Chloride 105 mmol/L (98-107); Creatinine, Serum 0.65 mg/dL (0.55-1.02); EST Glomerular Filtration Rate 118 mL/min (>60); Est Glom Filt Rate - Afr Amer 143 mL/min (>60); Estimated Creatinine Clearance 104.64 ml/min; Glucose 73 mg/dL (74-106); Potassium 3.7 mmol/L (3.5-5.1); Sodium Level 138 mmol/L (136-145)
[2022-09-05] MEDS: Acetaminophen 325 MG Tablet 650 MG PO (11:59)
[2022-09-05] MEDS: Ondansetron 4 MG/2 ML Vial IV (11:59)
[2022-09-05] MEDS: 0.9% Normal Saline 1,000 ML 1000 ML IV (11:59)
[2022-09-05 12:04] LABS: Bacteria 0 SEEN /hpf (None Seen); Red Blood Cells-Urine 0 SEEN /hpf (0-5)
[2022-09-05 12:17] LABS: Color, Urine Yellow (Yellow); Glucose, Dipstick Normal (Normal); Ketone-Dipstick Negative (Negative); Leukocyte Esterase-Dipstick 25 /ul (Negative); Nitrite-Dipstick Negative (Negative); Occult Blood-Urine Negative /ul (Negative); Protein-Dipstick 15 mg/dl (Negative); Specific Gravity, Urine 1.015 (1.002-1.030); Urine Bilirubin Dipstick Negative (Negative); Urine Clarity Sl. Cloudy (Clear); Urine Urobilinogen Normal (Normal)
[2022-09-05 12:28] VITALS: BP 114/64; PULSE 75; RESP 16; O2SAT 99
[2022-09-05 12:29] LABS: Mucous, Urine 2+ /hpf (<or=2+); Squamous Epithelial Cells - UA 5-10 SEEN /hpf (5-10); White Blood Cells 5-10 SEEN /hpf (0-5)
[2022-09-05 12:30] LABS: Internal QC Validated? YES +Cl - CLEAR BKGD; Pregnancy, Urine Negative Negative
[2022-09-05 13:25] VITALS: BP 84/44; PULSE 59; RESP 16; O2SAT 100
[2022-09-05] MEDS: Ketorolac 15 MG/ML Vial IV (13:26)
== END 2022-09-05 14:04 | disposition home or self-care (01) ==
PROVIDERS: Nurse Practitioner; Emergency Provider Emergency Medicine; Visit Provider Emergency Medicine
DX: R10.2 Pelvic and perineal pain (principal); R10.9 Unspecified abdominal pain
CPT/HCPCS: 76830; 80048; 81001; 81025; 85025; 96361; 96374; 96375; 99284; J7030; A4216; J2405